=== PATIENT | female | born 1965 | race American Indian/Alaskan Native ===

== ENCOUNTER 2020-06-06 11:22 | Emergency (ER) | payer BC ==
--- NOTE | 2020-06-06 11:58 | Emergency Department Report ---
ED ENT HPI - General Chief complaint: Dental/Oral Stated complaint: TOOTHACHE Time Seen by Provider: 06/06/20 11:53 Source: patient Mode of arrival: Ambulatory Limitations: No Limitations - History of Present Illness Initial comments: 55-year-old female presents to the emergency room for 1 day history of abscess to her left side of face that she noticed this morning. Patient reports she is aware that she has a bad tooth in her mouth. Patient was noted to have elevated blood pressure of 162/121. Patient reports that she has not been taking her blood pressure medicine as she usually on 2 medications 1 with a water pill and has been out of that one. Patient was unaware that she could have taken the other pill to help maintain her blood pressure at steady state. Patient denies any fever chills. MD complaint: tooth pain Onset/Timin -: days(s) - Related Data Previous Rx's Medication Instructions Recorded Last Taken Type Clindamycin [Clindamycin CAP] 300 mg PO Q8H 10 Days #30 cap 06/06/20 Unknown Rx hydroCHLOROthiazide [HCTZ] 25 mg PO QDAY #30 tablet 06/06/20 Unknown Rx Allergies Allergy/AdvReac Type Severity Reaction Status Date / Time No Known Allergies Allergy Unverified 06/06/20 11:36 ED Dental HPI - General Chief complaint: Dental/Oral Stated complaint: TOOTHACHE Time Seen by Provider: 06/06/20 11:53 Source: patient Mode of arrival: Ambulatory Limitations: No Limitations - Related Data Previous Rx's Medication Instructions Recorded Last Taken Type Clindamycin [Clindamycin CAP] 300 mg PO Q8H 10 Days #30 cap 06/06/20 Unknown Rx hydroCHLOROthiazide [HCTZ] 25 mg PO QDAY #30 tablet 06/06/20 Unknown Rx Allergies Allergy/AdvReac Type Severity Reaction Status Date / Time No Known Allergies Allergy Unverified 06/06/20 11:36 ED Review of Systems ROS: Stated complaint: TOOTHACHE Other details as noted in HPI Comment: All other systems reviewed and negative ED Past Medical Hx - Past Medical History Previous Medical History?: Yes Hx Hypertension: Yes Additional medical history: High cholesterol - Surgical History Past Surgical History?: No - Social History Smoking Status: Current Every Day Smoker Substance Use Type: Alcohol - Medications Home Medications: Home Medications Medication Instructions Recorded Confirmed Last Taken Type Clindamycin [Clindamycin CAP] 300 mg PO Q8H 10 Days #30 cap 06/06/20 Unknown Rx hydroCHLOROthiazide [HCTZ] 25 mg PO QDAY #30 tablet 06/06/20 Unknown Rx ED Physical Exam - General Limitations: No Limitations General appearance: alert, in no apparent distress - Head Head exam: Present: atraumatic, normocephalic - Eye Eye exam: Present: normal appearance - ENT ENT exam: Present: mucous membranes moist - Expanded ENT Exam Expanded Teeth exam: Present: dental caries, gingival enlargement (Left upper jaw) Throat exam: Positive: normal inspection - Neck Neck exam: Present: normal inspection - Respiratory Respiratory exam: Present: normal lung sounds bilaterally. Absent: respiratory distress - Cardiovascular Cardiovascular Exam: Present: tachycardia - GI/Abdominal GI/Abdominal exam: Present: soft, normal bowel sounds - Neurological Exam Neurological exam: Present: alert, oriented X3, normal gait - Psychiatric Psychiatric exam: Present: normal affect, normal mood - Skin Skin exam: Present: warm, dry, intact, normal color. Absent: rash ED Course Vital Signs 06/06/20 11:36 Temperature 99 F Pulse Rate 103 H Respiratory 20 Rate Blood Pressure 162/121 O2 Sat by Pulse 97 Oximetry ED Medical Decision Making - Medical Decision Making 55-year-old female presents to the emergency room for 1 day history of abscess to her left side of face that she noticed this morning. Patient reports she is aware that she has a bad tooth in her mouth. Patient was noted to have elevated blood pressure of 162/121. Patient reports that she has not been taking her blood pressure medicine as she usually on 2 medications 1 with a water pill and has been out of that one. Patient was unaware that she could have taken the other pill to help maintain her blood pressure at steady state. Patient denies any fever chills. Critical care attestation.: If time is entered above; I have spent that time in minutes in the direct care of this critically ill patient, excluding procedure time. ED Disposition Clinical Impression: Dental abscess Disposition: TO HOME OR SELFCARE Is pt being admited?: No Does the pt Need Aspirin: No Condition: Stable Additional Instructions: Complete antibiotics as prescribed start taking your blood pressure medication today. Tylenol or ibuprofen as needed for pain management. Very important for you to follow-up with your primary care provider as well as a primary general dentist. I have listed their information below for your convenience. Prescriptions: Clindamycin [Clindamycin CAP] 300 mg PO Q8H 10 Days #30 cap hydroCHLOROthiazide [HCTZ] 25 mg PO QDAY #30 tablet Referrals: Jose E, primary care [Other] - 3-5 Days Jerry Haile [Other] - 3-5 Days Forms: Work/School Release Form(ED)
[2020-06-06] MEDS ORDERED: cloNIDine 0.2 MG TAB PO ONE (12:44)
[2020-06-06] MEDS ORDERED: cloNIDine 0.1 MG TAB PO ONE (12:47)
[2020-06-06 13:51] VITALS: BP 166/114
== END 2020-06-06 13:52 | disposition home or self-care (01) ==
LOC: ED 11:22
DX: K04.7 Periapical abscess without sinus (principal); I10 Essential (primary) hypertension; F17.200 Nicotine dependence, unspecified, uncomplicated; Z79.899 Other long term (current) drug therapy
CPT/HCPCS: 99283

== ENCOUNTER 2021-03-20 08:04 | Emergency (ER) | payer BC ==
[2021-03-20] MEDS ORDERED: KETOROLAC 30 MG/1 ML INJ IV ONE (08:32)
[2021-03-20] MEDS ORDERED: hydrALAZINE 20 MG/1 ML INJ IV ONE (08:32)
--- NOTE | 2021-03-20 09:18 | Emergency Department Report ---
ED Upper Extremity Inj HPI - General Chief Complaint: Extremity Problem,Nontraumatic Stated Complaint: PAIN IN BOTH HANDS Time Seen by Provider: 03/20/21 08:24 Source: patient Mode of arrival: Ambulatory Limitations: No Limitations - History of Present Illness Initial Comments: This is a 56-year-old female nontoxic, well nourished in appearance, no acute signs of distress presents to the ED with c/o of acute on chronic intermittent bilateral wrist pains with numbness and tingling radiation to hands and fingers x 3 years. 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 Patient denies any injuries or trauma. Denies any other complaints or symptoms. patient denies any fever, chills, nausea, vomitin g, chest pain, shortness of breath, headache, stiff neck. Patient denies any joint swelling or joint redness. Patient denies decreased range of motion. Patient denies any allergies. Past medical history includes hypertension which she stated has not been taking her blood pressure medication for the past year and does not remember the name of her blood pressure medication MD Complaint: Injury to:: left, right, wrist, hand -: year(s) Other Extremity Injury: Fingers: Left, Right, Hand: Right, Left, Wrist: Left, Right Other Injuries: none Place: work Severity scale (0 -10): 8 Improves With: immobilization Worsens With: movement of extremity Associated Symptoms: numbness. denies: weakness, neck pain, suspects foreign body, nausea/vomiting, heard/felt popping sensat - Related Data Previous Rx's Medication Instructions Recorded Last Taken Type Clindamycin [Clindamycin CAP] 300 mg PO Q8H 10 Days #30 cap 06/06/20 Unknown Rx hydroCHLOROthiazide [HCTZ] 25 mg PO QDAY #30 tablet 06/06/20 Unknown Rx Amlodipine Besylate [Norvasc] 5 mg PO DAILY #30 tablet 03/20/21 Unknown Rx Naproxen 500 mg PO Q12H PRN #12 tablet 03/20/21 Unknown Rx Allergies Allergy/AdvReac Type Severity Reaction Status Date / Time No Known Allergies Allergy Unverified 06/06/20 11:36 ED Review of Systems ROS: Stated complaint: PAIN IN BOTH HANDS Other details as noted in HPI Comment: All other systems reviewed and negative Constitutional: denies: chills, fever Eyes: denies: eye pain, eye discharge, vision change ENT: denies: ear pain, throat pain Respiratory: denies: cough, shortness of breath, wheezing Cardiovascular: denies: chest pain, palpitations Endocrine: no symptoms reported Gastrointestinal: denies: abdominal pain, nausea, diarrhea Genitourinary: denies: urgency, dysuria, discharge Musculoskeletal: denies: back pain, joint swelling, arthralgia, myalgia Skin: denies: rash, lesions Neurological: denies: headache, weakness, paresthesias Psychiatric: denies: anxiety, depression Hematological/Lymphatic: denies: easy bleeding, easy bruising ED Past Medical Hx - Past Medical History Previous Medical History?: Yes Hx Hypertension: Yes Additional medical history: High cholesterol - Surgical History Past Surgical History?: No - Social History Smoking Status: Current Every Day Smoker Substance Use Type: Alcohol - Medications Home Medications: Home Medications Medication Instructions Recorded Confirmed Last Taken Type Clindamycin [Clindamycin CAP] 300 mg PO Q8H 10 Days #30 cap 06/06/20 Unknown Rx hydroCHLOROthiazide [HCTZ] 25 mg PO QDAY #30 tablet 06/06/20 Unknown Rx Amlodipine Besylate [Norvasc] 5 mg PO DAILY #30 tablet 03/20/21 Unknown Rx Naproxen 500 mg PO Q12H PRN #12 tablet 03/20/21 Unknown Rx ED Physical Exam - General Limitations: No Limitations General appearance: alert, in no apparent distress - Head Head exam: Present: atraumatic, normocephalic - Eye Eye exam: Present: normal appearance - Neck Neck exam: Present: normal inspection, full ROM. Absent: lymphadenopathy - Respiratory Respiratory exam: Present: normal lung sounds bilaterally. Absent: respiratory distress, wheezes, rales, rhonchi, stridor, chest wall tenderness, accessory muscle use, decreased breath sounds, prolonged expiratory - Cardiovascular Cardiovascular Exam: Present: regular rate, normal rhythm, normal heart sounds. Absent: irregular rhythm, systolic murmur, diastolic murmur, rubs, gallop - GI/Abdominal GI/Abdominal exam: Present: soft. Absent: distended, tenderness - Extremities Exam Extremities exam: Present: normal inspection, full ROM, normal capillary refill. Absent: tenderness, joint swelling - Expanded Upper Extremity Exam Left General: Present: normal inspection (Bilateral exam) Shoulder Exam: Present: normal inspection (Bilateral exam), full ROM (Bilateral exam). Absent: tenderness (Bilateral exam), swelling (Bilateral exam) Upper Arm exam: Present: normal inspection (Bilateral exam), full ROM (Bilateral exam). Absent: tenderness (Bilateral exam), swelling (Bilateral exam) Elbow exam: Present: normal inspection (Bilateral exam), full ROM (Bilateral exam). Absent: tenderness (Bilateral exam), swelling (Bilateral exam) Forearm Wrist exam: Present: normal inspection (Bilateral exam), full ROM (Bilateral exam). Absent: tenderness (Bilateral exam), swelling (Bilateral exam), abrasion (Bilateral exam), laceration (Bilateral exam), ecchymosis (Bilateral exam), deformity (Bilateral exam), crepidus (Bilateral exam), dislocation (Bilateral exam), erythema (Bilateral exam), tenderness over anatomical snuff box (Bilateral exam), pain with axial thumb loading (Bilateral exam) Hand Wrist exam: Present: normal inspection (Bilateral exam), full ROM (Bilateral exam). Absent: tenderness (Bilateral exam), swelling (Bilateral exam), abrasion (Bilateral exam), laceration (Bilateral exam), ecchymosis (Bilateral exam), deformity (Bilateral exam), crepidus (Bilateral exam), dislocation (Bilateral exam), erythema (Bilateral exam), amputation (Bilateral exam), nail avulsion (Bilateral exam), subungual hematoma (Bilateral exam) Neurosensory exam: Present: radial nerve intact, ulnar nerve intact, median nerve intact Vascular: Present: normal capillary refill. Absent: vascular compromise (Ne urovascular within normal limits) - Back Exam Back exam: Present: normal inspection, full ROM. Absent: tenderness, CVA tenderness (R), CVA tenderness (L), muscle spasm, paraspinal tenderness, vertebral tenderness, rash noted - Neurological Exam Neurological exam: Present: alert, oriented X3, normal gait - Psychiatric Psychiatric exam: Present: normal affect, normal mood - Skin Skin exam: Present: warm, dry, intact, normal color. Absent: rash - Other Other exam information: Positive bilateral Phalen's test ED Course Vital Signs 03/20/21 03/20/21 03/20/21 08:07 10:32 11:14 Temperature 98.7 F 98.0 F Pulse Rate 100 H 97 H 119 H Respiratory 18 16 18 Rate Blood Pressure 191/132 165/105 173/93 [Right] O2 Sat by Pulse 100 97 100 Oximetry 03/20/21 13:46 Temperature Pulse Rate 98 H Respiratory Rate Blood Pressure [Right] O2 Sat by Pulse Oximetry - Reevaluation(s) Reevaluation #1: 03/20/21 09:19 Patient is speaking in full sentences with no signs of distress noted. Reevaluation #2: 03/20/21 11:29 At the time of discharge, patient is anxious on exam and has tachycardia. Will order a EKG and re- evaluate patient. Otherwise physical exam is unremarkable. Reevaluation #3: 03/20/21 11:42 Will order IV fluids and Atrovent for anxiety. Will re-eval vitals before DC. Reevaluation #4: 03/20/21 13:56 Heart discharged at this time. Patient is stable. Re-assessment is u nremarkable. Will discharge at this time. ED Medical Decision Making - Lab Data Result diagrams: 03/20/21 09:11 03/20/21 10:08 Lab Results 03/20/21 03/20/21 03/20/21 Range/Units 09:11 09:11 10:08 WBC 3.5 L (4.5-11.0) K/mm3 RBC 4.57 (3.65-5.03) M/mm3 Hgb 14.2 (10.1-14.3) gm/dl Hct 43.1 H (30.3-42.9) % MCV 94 (79-97) fl MCH 31 (28-32) pg MCHC 33 (30-34) % RDW 13.1 L (13.2-15.2) % Plt Count 216 (140-440) K/mm3 Lymph % (Auto) 24.4 (13.4-35.0) % [place] % (Auto) 12.3 H (0.0-7.3) % Eos % (Auto) 1.1 (0.0-4.3) % Baso % (Auto) 1.1 (0.0-1.8) % Lymph # (Auto) 0.9 L (1.2-5.4) K/mm3 [place] # (Auto) 0.4 (0.0-0.8) K/mm3 Eos # (Auto) 0.0 (0.0-0.4) K/mm3 Baso # (Auto) 0.0 (0.0-0.1) K/mm3 Seg Neutrophils % 61.1 (40.0-70.0) % Seg Neutrophils # 2.2 (1.8-7.7) K/mm3 Sodium TNR 138 Potassium TNR 4.3 Chloride TNR 100.3 Carbon Dioxide TNR 25 Anion Gap TNR 17 BUN TNR 16 Creatinine TNR 0.5 L Estimated GFR TNR > 60 BUN/Creatinine Ratio TNR 32 Glucose TNR 94 Calcium TNR 9.1 Total Bilirubin TNR 0.30 AST TNR 24 ALT TNR 16 Alkaline Phosphatase TNR 86 Total Protein TNR 7.6 Albumin TNR 4.3 Albumin/Globulin Ratio TNR 1.3 - EKG Data 03/20/21 11:40 Sinus tachycardia at [address] or T wave abnormalities. Reviewed and signed by Dr. Jordan. - Medical Decision Making 56-year-old female that presents with carpal tunnel and hypertension. Patient is stable and was examined by me. Labs has been obtained. Patient is received hydralazine and pain medication treatment in ER. Blood pressure has decreased prior to discharge. [facility]. Patient was educated carpal tunnel symptoms and treatment. Instructed to take [id number] wrist immobilizers. Patient be discharged with naproxen as well. Patient stated family member will drive patient home after discharge due to possible drowsiness. Patient was instructed to follow-up with a primary care doctor in 3-5 days or if symptoms worsen and continue return to emergency room as soon as possible. At time of discharge, the patient does not seem toxic or ill in appearance. No acute signs of distress noted. Patient agrees to discharge treatment plan of care. No further questions noted by the patient. Critical care attestation.: If time is entered above; I have spent that time in minutes in the direct care of this critically ill patient, excluding procedure time. ED Disposition Clinical Impression: Carpal tunnel syndrome, bilateral Hypertension Qualifiers: Hypertension type: unspecified Qualified Code(s): I10 - Essential (primary) hypertension Disposition: HOME / SELF CARE / HOMELESS Is pt being admited?: No Does the pt Need Aspirin: No Condition: Stable Instructions: Preventing Carpal Tunnel Syndrome, Hypertension, Adult, [id number], Preventing Hypertension, Hypertension (ED) Additional Instructions: Follow-up with a primary care doctor in 3-5 days or if symptoms worsen and continue return to emergency room as soon as possible. Prescriptions: Naproxen 500 mg PO Q12H PRN #12 tablet PRN Reason: Pain , Severe (7-10) Amlodipine Besylate [Norvasc] 5 mg PO DAILY #30 tablet Referrals: PRIMARY CAREMD [Primary Care Provider] - 3-5 Days ALEXANDR SIDHU MD [Staff Physician] - 3-5 Days Time of Disposition: 14:00
[2021-03-20 09:34] LABS: Basophils % (Auto) 1.1 % (0.0-1.8); Eosinophils % (Auto) 1.1 % (0.0-4.3); Hematocrit 43.1 % (30.3-42.9); Hemoglobin 14.2 gm/dl (10.1-14.3); Lymphocytes # (Auto) 0.9 K/mm3 (1.2-5.4); Lymphocytes % (Auto) 24.4 % (13.4-35.0); Mean Corpuscular HGB Conc 33 % (30-34); Mean Corpuscular Volume 94 fl (79-97); Monocytes # (Auto) 0.4 K/mm3 (0.0-0.8); Monocytes % (Auto) 12.3 % (0.0-7.3); Platelet Count 216 K/mm3 (140-440); Red Blood Count 4.57 M/mm3 (3.65-5.03); Red Cell Distribution Width 13.1 % (13.2-15.2)
[2021-03-20 09:58] LABS: Hemolysis Index 205
[2021-03-20 09:59] LABS: Blood Urea Nitrogen TNR mg/dL (7-17)
[2021-03-20 10:00] LABS: Alanine Aminotransferase TNR units/L (7-56); Albumin TNR g/dL (3.9-5); BUN/Creatinine Ratio TNR; Calcium TNR mg/dL (8.4-10.2)
[2021-03-20 10:55] LABS: Alanine Aminotransferase 16 units/L (7-56); Albumin 4.3 g/dL (3.9-5); Blood Urea Nitrogen 16 mg/dL (7-17); Calcium 9.1 mg/dL (8.4-10.2); Hemolysis Index 23
[2021-03-20 10:57] LABS: BUN/Creatinine Ratio 32
[2021-03-20 11:15] VITALS: BP 173/93
[2021-03-20] MEDS ORDERED: SODIUM CHLORIDE 0.9% 1000 ML 1,000 ML IV ONE (11:43)
[2021-03-20] MEDS ORDERED: LORazepam 2 MG/ML VIAL IV ONE (11:43)
--- NOTE | 2021-03-22 11:31 | Electrocardiograph Report ---
[facility] Test Date: 2021-03-20 Test Time: 11:35:35 Pat Name: IRIS BARILLAS Department: Room: Gender: F Human Resources Advisor: ZONIA : [id number] Requested By: JOSELYN MORENO Order Number: [id number] Reading MD: Sol Morton Measurements Intervals [place] Rate: 116 P: 63 NH: 160 QRS: 50 QRSD: 91 T: 32 QT: 350 QTc: 487 Interpretive Statements Sinus tachycardia Left atrial enlargement Anterior infarct, old No previous ECG available for comparison Electronically Signed On 03-22-2021 11:30:56 EST by Sol Morton
== END 2021-03-20 14:42 | disposition home or self-care (01) ==
LOC: ED 08:04
DX: G56.03 Carpal tunnel syndrome, bilateral upper limbs (principal); I10 Essential (primary) hypertension; F17.200 Nicotine dependence, unspecified, uncomplicated; F10.20 Alcohol dependence, uncomplicated
CPT/HCPCS: 36415; 80053; 85025; 93005; 96361; 96374; 96375; 99283; J0360; J1885; J2060; J7030; Q0162

== ENCOUNTER 2021-06-22 08:05 | Emergency (ER) | payer BC ==
[2021-06-22] MEDS ORDERED: hydrALAZINE 25 MG TAB PO ONE (10:38)
[2021-06-22 10:55] LABS: Basophils % (Auto) 0.6 % (0.0-1.8); Eosinophils # (Auto) 0.1 K/mm3 (0.0-0.4); Eosinophils % (Auto) 1.9 % (0.0-4.3); Hematocrit 40.8 % (30.3-42.9); Hemoglobin 13.4 gm/dl (10.1-14.3); Lymphocytes % (Auto) 35.7 % (13.4-35.0); Mean Corpuscular HGB Conc 33 % (30-34); Mean Corpuscular Volume 92 fl (79-97); Monocytes # (Auto) 0.3 K/mm3 (0.0-0.8); Monocytes % (Auto) 10.6 % (0.0-7.3); Platelet Count 235 K/mm3 (140-440); Red Blood Count 4.42 M/mm3 (3.65-5.03); Red Cell Distribution Width 13.5 % (13.2-15.2)
[2021-06-22 11:01] LABS: Alanine Aminotransferase 15 units/L (7-56); Blood Urea Nitrogen 16 mg/dL (7-17); Calcium 8.7 mg/dL (8.4-10.2); Hemolysis Index 12
--- NOTE | 2021-06-22 11:04 | Emergency Department Report ---
ED General Adult HPI - General Chief complaint: Extremity Problem,Nontraumatic Stated complaint: KNEE PAIN Time Seen by Provider: 06/22/21 09:17 Source: patient Mode of arrival: Ambulatory Limitations: No Limitations - History of Present Illness Initial comments: 56-year-old -Italian female patient presents with complaints of bilateral swelling to her knees and hands x3 months. She denies any injuries. Past medical history includes hypertension. Patient states she has not taken her antihypertensive meds in about 1 year. She denies any fever/chills/sweats, difficulty moving her knees, IV drug use, or dysuria/hematuria/urinary frequency or vaginal discharge. She states there is some pain in the knees and the hands and states the pain is a 9/10 in severity. Pain mildly improved with Aleve OTC. NKDA per patient. She denies shortness of breath, chest pain, or abdominal swelling Severity scale (0 -10): 10 - Related Data Previous Rx's Medication Instructions Recorded Last Taken Type Clindamycin [Clindamycin CAP] 300 mg PO Q8H 10 Days #30 cap 06/06/20 Unknown Rx hydroCHLOROthiazide [HCTZ] 25 mg PO QDAY #30 tablet 06/06/20 Unknown Rx Amlodipine Besylate [Norvasc] 5 mg PO DAILY #30 tablet 03/20/21 Unknown Rx Naproxen 500 mg PO Q12H PRN #12 tablet 03/20/21 Unknown Rx Naproxen [Naprosyn TAB] 500 mg PO BID PRN #20 tablet 06/22/21 Unknown Rx hydroCHLOROthiazide 50 mg PO QDAY 30 Days #30 tab 06/22/21 Unknown Rx [Hydrochlorothiazide] predniSONE [Deltasone] 20 mg PO BID 3 Days #6 tab 06/22/21 Unknown Rx Allergies Allergy/AdvReac Type Severity Reaction Status Date / Time No Known Allergies Allergy Unverified 06/06/20 11:36 ED Review of Systems ROS: Stated complaint: KNEE PAIN Other details as noted in HPI Constitutional: denies: chills, fever, malaise Respiratory: denies: cough, shortness of breath Musculoskeletal: joint swelling, arthralgia Skin: denies: rash, lesions, change in color Neurological: denies: numbness, paresthesias, abnormal gait ED Past Medical Hx - Past Medical History Hx Hypertension: Yes Additional medical history: High cholesterol - Social History Smoking Status: Current Every Day Smoker Substance Use Type: Alcohol - Medications Home Medications: Home Medications Medication Instructions Recorded Confirmed Last Taken Type Clindamycin [Clindamycin CAP] 300 mg PO Q8H 10 Days #30 cap 06/06/20 Unknown Rx hydroCHLOROthiazide [HCTZ] 25 mg PO QDAY #30 tablet 06/06/20 Unknown Rx Amlodipine Besylate [Norvasc] 5 mg PO DAILY #30 tablet 03/20/21 Unknown Rx Naproxen 500 mg PO Q12H PRN #12 tablet 03/20/21 Unknown Rx Naproxen [Naprosyn TAB] 500 mg PO BID PRN #20 tablet 06/22/21 Unknown Rx hydroCHLOROthiazide 50 mg PO QDAY 30 Days #30 tab 06/22/21 Unknown Rx [Hydrochlorothiazide] predniSONE [Deltasone] 20 mg PO BID 3 Days #6 tab 06/22/21 Unknown Rx ED Physical Exam - General Limitations: No Limitations General appearance: alert, in no apparent distress - Head Head exam: Present: atraumatic, normocephalic - Eye Eye exam: Present: normal appearance. Absent: scleral icterus - Neck Neck exam: Present: normal inspection - Respiratory Respiratory exam: Present: normal lung sounds bilaterally. Absent: respiratory distress - Cardiovascular Cardiovascular Exam: Present: regular rate, normal rhythm - Extremities Exam Extremities exam: Present: other (Mild swelling noted bilaterally to knees without erythema or tenderness to palpation; no swelling noted in the hands; no lower leg edema or calf tenderness) - Neurological Exam Neurological exam: Present: alert, oriented X3 - Psychiatric Psychiatric exam: Present: normal affect, normal mood - Skin Skin exam: Present: warm, dry, intact, normal color. Absent: rash ED Course Vital Signs 06/22/21 06/22/21 06/22/21 08:51 10:47 11:59 Temperature 98.1 F Pulse Rate 82 82 101 H Respiratory 18 16 Rate Blood Pressure 204/129 Blood Pressure 204/129 182/110 [Right] O2 Sat by Pulse 99 99 Oximetry ED Medical Decision Making - Lab Data Result diagrams: 06/22/21 09:55 06/22/21 09:55 - Medical Decision Making 56-year-old -Italian female patient presents with complaints of bilateral swelling to her knees and hands x3 months. She denies any injuries. Past medical history includes hypertension. Patient states she has not taken her antihypertensive meds in about 1 year. She denies any fever/chills/sweats, difficulty moving her knees, IV drug use, or dysuria/hematuria/urinary frequency or vaginal discharge. She states there is some pain in the knees and the hands and states the pain is a 9/10 in severity. Pain mildly improved with Aleve OTC. NKDA per patient. She denies shortness of breath, chest pain, or abdominal swelling White count mildly decreased, CBC, vitals are otherwise negative for any acute abnormalities. Blood pressure elevated at 204/129. Patient states she has been off her hydrochlorothiazide for about 1 year and normally takes 50 mg. She is neurologically intact on exam and denies any neurological symptoms. Pressure now 182/110. Will restart patient on hydrochlorothiazide 50 mg. I recommend she follows up with her primary care doctor within 3 to 5 days for further management of her blood pressure and further evaluation of her diffuse joint pains. Discussed in detail signs and symptoms that should prompt immediate return to the ED with patient who verbalized understanding Critical care attestation.: If time is entered above; I have spent that time in minutes in the direct care of this critically ill patient, excluding procedure time. ED Disposition Clinical Impression: Joint pain, Medical non-compliance Disposition: 01 HOME / SELF CARE / HOMELESS Is pt being admited?: No Condition: Stable Instructions: Hypertension, Adult, [id number], Pain Without a Known Cause Prescriptions: predniSONE [Deltasone] 20 mg PO BID 3 Days #6 tab hydroCHLOROthiazide [Hydrochlorothiazide] 50 mg PO QDAY 30 Days #30 tab Naproxen [Naprosyn TAB] 500 mg PO BID PRN #20 tablet PRN Reason: pain Referrals: PRIMARY CARE,MD [Primary Care Provider] - 3-5 Days Forms: Work/School Release Form(ED)
[2021-06-22 11:17] LABS: BUN/Creatinine Ratio 23
[2021-06-22 11:59] VITALS: BP 182/110
[2021-06-22] MEDS ORDERED: KETOROLAC 60 MG/2 ML INJ IM ONE (12:00)
[2021-06-22] MEDS ORDERED: dexAMETHasone 4 MG/ML VIAL IM STA (12:00)
== END 2021-06-22 12:33 | disposition home or self-care (01) ==
LOC: ED 08:05
DX: M25.50 Pain in unspecified joint (principal); Z91.19 Patient's noncompliance with other medical treatment and regimen; F17.200 Nicotine dependence, unspecified, uncomplicated; F10.20 Alcohol dependence, uncomplicated
CPT/HCPCS: 36415; 80053; 83880; 85025; 96372; 99283; J1100; J1885